=== PATIENT | male | born 1935 | race Caucasian/White ===

== ENCOUNTER 2023-10-13 13:29 | Outpatient (CLI) | payer MEDICARE ==
[2023-10-13] MEDS ORDERED: Magnevist 469MG/ML 20 ML VIAL ONE ×2 (13:59)
== END 2023-10-13 13:30 | disposition home or self-care (01) ==
LOC: MRI 13:29
PROVIDERS: ATTEND Radiology Radiation Oncology
DX: C71.3 Malignant neoplasm of parietal lobe (principal); M47.816 Spondylosis without myelopathy or radiculopathy, lumbar region; M47.817 Spondylosis without myelopathy or radiculopathy, lumbosacral region; M43.17 Spondylolisthesis, lumbosacral region; M48.061 Spinal stenosis, lumbar region without neurogenic claudication; M48.07 Spinal stenosis, lumbosacral region; M46.1 Sacroiliitis, not elsewhere classified
CPT/HCPCS: 72158; 72197; A9579

== ENCOUNTER 2023-11-29 18:35 | Emergency (ER) | payer MEDICARE ==
[2023-11-29 20:21] LABS: #Eosinphils 0.1 thou/uL (0.0-0.7); #Monocytes 0.7 thou/uL (0.11-0.59); #Neutrophils 4.4 thou/uL (1.40-6.50); %Basophils 0.3 % (0.0-1.0); %Eosinophils 0.7 % (0.0-10.0); %Lymphocytes 22.2 % (21.0-51.0); %Monocytes 10.4 % (0.0-10.0); %Neutrophils 64.8 % (42.0-75.0); Hematocrit 46.1 % (42.0-52.0); Hemoglobin 16.1 g/dL (14.0-18.0); Mean Corpuscular HGB CONC 34.9 g/dL (32.0-36.0); Mean Corpuscular Hemoglobin 35.6 pg (27.0-31.0); RBC Distribution Width 14.5 % (11.5-14.5); Red Blood Cell (RBC) Count 4.52 mill/uL (4.70-6.10); White Blood Cell (WBC) Count 6.9 10x3/uL (4.8-10.8)
[2023-11-29 20:23] LABS: Platelet Count 84 10x3/uL (130-400)
[2023-11-29 20:45] LABS: ALT (SGPT) 26 U/L (8-55); AST (SGOT) 40 U/L (5-34); Albumin 3.7 g/dL (3.4-4.8); Alkaline Phosphatase 101 U/L (40-110); Anion Gap 16 mmol/L (10-20); BUN (Urea Nitrogen) 24 mg/dL (8.4-25.7); Bilirubin, Total 1.1 mg/dL (0.2-1.2); Calc. Creatinine Clearance 0 mL/min (70-130); Calcium 8.5 mg/dL (7.8-10.44); Carbon Dioxide 22 mmol/L (23-31); Chloride 102 mmol/L (98-107); Estimated GFR 78; Globulin 3.7 g/dL (2.4-3.5); Glucose 113 mg/dL (83-110); Potassium 4.2 mmol/L (3.5-5.1); Protein, Total 7.4 g/dL (5.8-8.1); Sodium 136 mmol/L (136-145)
[2023-11-29 21:14] LABS: SARS-CoV-2 NAA Rapid Test Not Detected (NotDetected)
[2023-11-29 21:39] LABS: Bacteria/HPF None Seen HPF (None Seen); Bilirubin Negative (Negative); Blood, Urine Negative (Negative); CAUTI Indications for Culture Alt mental st,lethar; Clarity Clear (Clear); Glucose, Urine (Dipstick) Normal (Negative); Ketone, Urine Negative (Negative); Leukocyte Negative Leu/uL (Negative); Nitrite Negative (Negative); Protein, Urine (Dipstick) 20 mg/dL (Neg-Trace); RBC/HPF 0-3 HPF (0-3); Specific Gravity, Urine 1.025 (1.002-1.036); Squamous Epithelial None Seen HPF (0-3); Urobilinogen Normal mg/dL (Less than 2); WBC/HPF 0-3 HPF (0-3); pH, Urine 5.5 (5.0-9.0)
[2023-11-29 21:42] LABS: Urine Culture Reflex No No
== END 2023-11-29 22:31 | disposition home or self-care (01) ==
LOC: ERS 18:35
DX: R53.1 Weakness (principal); R53.81 Other malaise
CPT/HCPCS: 0240U; 71045; 80053; 81001; 83605; 85025; 93005

== ENCOUNTER 2023-12-05 15:34 | Inpatient (IN) | payer MEDICARE ==
[2023-12-05 17:18] LABS: #Eosinphils 0.1 thou/uL (0.0-0.7); #Monocytes 0.4 thou/uL (0.11-0.59); #Neutrophils 4.2 thou/uL (1.40-6.50); %Basophils 0.2 % (0.0-1.0); %Eosinophils 1.3 % (0.0-10.0); %Lymphocytes 13.3 % (21.0-51.0); %Monocytes 6.6 % (0.0-10.0); %Neutrophils 76.8 % (42.0-75.0); Hematocrit 37.4 % (42.0-52.0); Hemoglobin 13.1 g/dL (14.0-18.0); Mean Corpuscular Hemoglobin 35.8 pg (27.0-31.0); Mean Corpuscular Volume 102.2 fl (78.0-98.0); Mean Platelet Volume 9.8 fL (7.4-10.4); RBC Distribution Width 14.3 % (11.5-14.5); Red Blood Cell (RBC) Count 3.66 mill/uL (4.70-6.10); White Blood Cell (WBC) Count 5.5 10x3/uL (4.8-10.8)
[2023-12-05 17:22] LABS: Platelet Count 94 10x3/uL (130-400)
[2023-12-05] MEDS ORDERED: Azithromycin 500 MG VIAL ONE ×2 (17:31→20:47)
[2023-12-05 17:40] LABS: ALT (SGPT) 17 U/L (8-55); AST (SGOT) 17 U/L (5-34); Albumin 3.1 g/dL (3.4-4.8); Alkaline Phosphatase 82 U/L (40-110); Anion Gap 13 mmol/L (10-20); BUN (Urea Nitrogen) 20 mg/dL (8.4-25.7); Bilirubin, Total 1.2 mg/dL (0.2-1.2); Calc. Creatinine Clearance 0 mL/min (70-130); Calcium 8.2 mg/dL (7.8-10.44); Carbon Dioxide 23 mmol/L (23-31); Chloride 102 mmol/L (98-107); Estimated GFR 87; Glucose 153 mg/dL (83-110); Lipase 29 U/L (8-78); Magnesium 1.7 mg/dL (1.6-2.6); Potassium 3.7 mmol/L (3.5-5.1); Protein, Total 6.1 g/dL (5.8-8.1); Sodium 134 mmol/L (136-145)
[2023-12-05 17:42] LABS: Troponin I 0.042 ng/mL (< 0.028)
[2023-12-05 19:00] LABS: Bacteria/HPF None Seen HPF (None Seen); Bilirubin Negative (Negative); Blood, Urine Negative (Negative); CAUTI Indications for Culture Immunosuppressed; Clarity Clear (Clear); Glucose, Urine (Dipstick) Normal (Negative); Ketone, Urine Negative (Negative); Leukocyte Negative Leu/uL (Negative); Nitrite Negative (Negative); Protein, Urine (Dipstick) Negative (Neg-Trace); RBC/HPF 0-3 HPF (0-3); Specific Gravity, Urine 1.012 (1.002-1.036); Squamous Epithelial None Seen HPF (0-3); Urobilinogen Normal mg/dL (Less than 2); WBC/HPF 0-3 HPF (0-3)
[2023-12-05 19:06] LABS: Urine Culture Reflex Yes Yes
[2023-12-05] MEDS ORDERED: Dextrose 5% in Water 1,000 ML IV PRN (19:27)
[2023-12-05] MEDS ORDERED: Ondansetron PF 4 MG/2 ML Vial IVP PRN (19:27)
[2023-12-05] MEDS ORDERED: Senokot S 8.6-50 MG TAB PO PRN (19:27)
[2023-12-05] MEDS ORDERED: Ondansetron ODT 4 MG TAB PO PRN (19:27)
[2023-12-05] MEDS ORDERED: Acetaminophen 325 MG TAB PO PRN (19:27)
[2023-12-05] MEDS ORDERED: Dextrose 50% Abboject 50 ML SYRINGE SLOW IVP PRN (19:27)
[2023-12-05] MEDS ORDERED: Acetaminophen 650 MG Suppository PR PRN (19:27)
[2023-12-05] MEDS ORDERED: Glucagon 1 MG/ML KIT IM PRN (19:27)
[2023-12-05] MEDS ORDERED: Electrolyte Replacement Protocol 1 EACH FS SCH (19:30)
[2023-12-05] MEDS ORDERED: Sodium Chloride 0.9% 1,000 ML IV SCH (19:30)
[2023-12-05 19:31] LABS: SARS-CoV-2 NAA Rapid Test Not Detected (NotDetected)
[2023-12-05] MEDS ORDERED: Ipratropium/Albuterol 3 ML NEB NEB PRN (19:34)
[2023-12-05] MEDS ORDERED: Morphine 2 MG/ML VIAL SLOW IVP PRN (19:34)
[2023-12-05 20:54] LABS: Troponin I 0.041 ng/mL (< 0.028)
[2023-12-05 22:07] VITALS: BMI 23.1
[2023-12-05] MEDS: cefTRIAXone\\ROCEPHIN 1 GM in Sodium Chloride 0.9% 100 ML IVPB SCH (22:42)
[2023-12-05] MEDS: Famotidine 20 MG TAB PO SCH (22:42)
[2023-12-06 00:33] LABS: Legionella Urinary Ag Negative (Negative); Strep pneumo Urine Ag NEGATIVE (NEGATIVE)
[2023-12-06] MEDS ORDERED: Magnesium 2 GM/50 ML(in water) 2 GM in Premix 1 BAG IVPB SCH (00:45)
[2023-12-06 04:42] LABS: #Eosinphils 0.2 thou/uL (0.0-0.7); #Monocytes 0.4 thou/uL (0.11-0.59); #Neutrophils 3.4 thou/uL (1.40-6.50); %Basophils 0.2 % (0.0-1.0); %Eosinophils 3.5 % (0.0-10.0); %Lymphocytes 21.6 % (21.0-51.0); %Monocytes 7.3 % (0.0-10.0); Hematocrit 37.6 % (42.0-52.0); Hemoglobin 12.7 g/dL (14.0-18.0); Mean Corpuscular HGB CONC 33.8 g/dL (32.0-36.0); Mean Corpuscular Hemoglobin 35.4 pg (27.0-31.0); Mean Corpuscular Volume 104.7 fl (78.0-98.0); Platelet Count 93 10x3/uL (130-400); RBC Distribution Width 14.5 % (11.5-14.5); Red Blood Cell (RBC) Count 3.59 mill/uL (4.70-6.10); White Blood Cell (WBC) Count 5.1 10x3/uL (4.8-10.8)
[2023-12-06 05:09] LABS: ALT (SGPT) 16 U/L (8-55); AST (SGOT) 16 U/L (5-34); Albumin 2.8 g/dL (3.4-4.8); Alkaline Phosphatase 74 U/L (40-110); Anion Gap 14 mmol/L (10-20); BUN (Urea Nitrogen) 17 mg/dL (8.4-25.7); Bilirubin, Total 0.7 mg/dL (0.2-1.2); Calc. Creatinine Clearance 70 mL/min (70-130); Calcium 7.7 mg/dL (7.8-10.44); Carbon Dioxide 20 mmol/L (23-31); Chloride 108 mmol/L (98-107); Estimated GFR 88; Globulin 2.8 g/dL (2.4-3.5); Glucose 144 mg/dL (83-110); Magnesium 2.7 mg/dL (1.6-2.6); Potassium 3.7 mmol/L (3.5-5.1); Protein, Total 5.6 g/dL (5.8-8.1); Sodium 138 mmol/L (136-145)
[2023-12-06 05:14] LABS: Troponin I 0.022 ng/mL (< 0.028)
[2023-12-06] MEDS ORDERED: Electrolyte Replacement Protocol FS PRN (07:00)
[2023-12-06] MEDS: Famotidine 20 MG TAB PO SCH ×2 (09:01→20:36)
[2023-12-06] MEDS: Clopidogrel Bisulfate 75 MG TAB PO SCH (15:56)
[2023-12-06] MEDS: Tamsulosin HCl 0.4 MG CAP PO SCH (15:57)
[2023-12-06] MEDS: levETIRAcetam 500 MG TAB PO SCH ×2 (15:57→20:37)
[2023-12-06] MEDS: Aspirin 81 mg Enteric Coated Tablet PO SCH (20:36)
[2023-12-06] MEDS: Empagliflozin 10 MG TAB PO SCH ×2 (20:36)
[2023-12-06] MEDS: Cholecalciferol 1,000 UNITS (25 MCG) TAB PO SCH (20:36)
[2023-12-06] MEDS: Atorvastatin Calcium 20 MG TAB PO SCH (20:36)
[2023-12-06] MEDS: CO Q-10 CAPSULE 100 MG PO SCH (20:36)
[2023-12-06] MEDS: cefTRIAXone\\ROCEPHIN 1 GM in Sodium Chloride 0.9% 100 ML IVPB SCH (20:37)
[2023-12-06] MEDS: Azithromycin 500 MG in Sodium Chloride 0.9% 250 ML 250 ML IVPB SCH (21:20)
[2023-12-07] MEDS: HumaLOG 300 UNITS/3 ML VIAL SC PRN ×4 (06:11→21:06)
[2023-12-07 07:16] LABS: Calc. Creatinine Clearance 68 mL/min (70-130); Calcium 7.4 mg/dL (7.8-10.44); Estimated GFR 87
[2023-12-07 07:17] LABS: Phosphorus 2.5 mg/dL (2.3-4.7)
[2023-12-07] MEDS: levETIRAcetam 500 MG TAB PO SCH ×2 (07:29→21:03)
[2023-12-07] MEDS: Tamsulosin HCl 0.4 MG CAP PO SCH (07:29)
[2023-12-07] MEDS: Famotidine 20 MG TAB PO SCH ×2 (07:29→21:02)
[2023-12-07] MEDS: Clopidogrel Bisulfate 75 MG TAB PO SCH (07:30)
[2023-12-07] MEDS: Icosapent Ethyl 1 GM CAPSULE PO SCH (07:32)
[2023-12-07] MEDS: Calcium Polycarbophil 625 MG TAB PO SCH (07:32)
[2023-12-07] MEDS: Dexamethasone 1 MG TAB PO SCH (07:32)
[2023-12-07] MEDS ORDERED: Magnesium 2 GM/50 ML(in water) 2 GM in Premix 1 BAG IVPB SCH (08:00)
[2023-12-07] MEDS: cefTRIAXone\\ROCEPHIN 1 GM in Sodium Chloride 0.9% 100 ML IVPB SCH (21:02)
[2023-12-07] MEDS: Cholecalciferol 1,000 UNITS (25 MCG) TAB PO SCH (21:02)
[2023-12-07] MEDS: Aspirin 81 mg Enteric Coated Tablet PO SCH (21:02)
[2023-12-07] MEDS: CO Q-10 CAPSULE 100 MG PO SCH (21:03)
[2023-12-07] MEDS: Empagliflozin 10 MG TAB PO SCH (21:03)
[2023-12-07] MEDS: Atorvastatin Calcium 20 MG TAB PO SCH (21:03)
[2023-12-07] MEDS: Azithromycin 500 MG in Sodium Chloride 0.9% 250 ML 250 ML IVPB SCH (21:45)
[2023-12-08] MEDS: Icosapent Ethyl 1 GM CAPSULE PO SCH (09:51)
[2023-12-08] MEDS: Famotidine 20 MG TAB PO SCH ×2 (09:51→21:04)
[2023-12-08] MEDS: Tamsulosin HCl 0.4 MG CAP PO SCH (09:51)
[2023-12-08] MEDS: levETIRAcetam 500 MG TAB PO SCH ×2 (09:51→21:03)
[2023-12-08] MEDS: Calcium Polycarbophil 625 MG TAB PO SCH (09:51)
[2023-12-08] MEDS: Clopidogrel Bisulfate 75 MG TAB PO SCH ×2 (09:51→09:57)
[2023-12-08] MEDS: Dexamethasone 1 MG TAB PO SCH (09:51)
[2023-12-08] MEDS ORDERED: LevoFLOXacin 750 MG TAB PO SCH (10:00)
[2023-12-08] MEDS: HumaLOG 300 UNITS/3 ML VIAL SC PRN ×2 (17:37→21:05)
[2023-12-08] MEDS: Empagliflozin 10 MG TAB PO SCH (20:59)
[2023-12-08] MEDS: CO Q-10 CAPSULE 100 MG PO SCH (21:03)
[2023-12-08] MEDS: Aspirin 81 mg Enteric Coated Tablet PO SCH (21:04)
[2023-12-08] MEDS: Atorvastatin Calcium 20 MG TAB PO SCH (21:04)
[2023-12-08] MEDS: Cholecalciferol 1,000 UNITS (25 MCG) TAB PO SCH (21:04)
[2023-12-09] MEDS: LevoFLOXacin 750 MG TAB PO SCH (05:51)
[2023-12-09] MEDS: Calcium Polycarbophil 625 MG TAB PO SCH (08:15)
[2023-12-09] MEDS: Clopidogrel Bisulfate 75 MG TAB PO SCH (08:16)
[2023-12-09] MEDS: Icosapent Ethyl 1 GM CAPSULE PO SCH (08:16)
[2023-12-09] MEDS: levETIRAcetam 500 MG TAB PO SCH ×2 (08:16→21:02)
[2023-12-09] MEDS: Tamsulosin HCl 0.4 MG CAP PO SCH (08:16)
[2023-12-09] MEDS: Famotidine 20 MG TAB PO SCH ×2 (08:16→21:02)
[2023-12-09] MEDS: Dexamethasone 1 MG TAB PO SCH (08:16)
[2023-12-09] MEDS: HumaLOG 300 UNITS/3 ML VIAL SC PRN ×3 (13:00→21:53)
[2023-12-09] MEDS: Empagliflozin 10 MG TAB PO SCH (21:01)
[2023-12-09] MEDS: CO Q-10 CAPSULE 100 MG PO SCH (21:02)
[2023-12-09] MEDS: Cholecalciferol 1,000 UNITS (25 MCG) TAB PO SCH (21:02)
[2023-12-09] MEDS: Aspirin 81 mg Enteric Coated Tablet PO SCH (21:02)
[2023-12-09] MEDS: Atorvastatin Calcium 20 MG TAB PO SCH (21:02)
[2023-12-10] MEDS: LevoFLOXacin 750 MG TAB PO SCH (05:32)
[2023-12-10] MEDS: Clopidogrel Bisulfate 75 MG TAB PO SCH (08:31)
[2023-12-10] MEDS: Calcium Polycarbophil 625 MG TAB PO SCH (08:31)
[2023-12-10] MEDS: levETIRAcetam 500 MG TAB PO SCH ×2 (08:32→21:20)
[2023-12-10] MEDS: Icosapent Ethyl 1 GM CAPSULE PO SCH (08:32)
[2023-12-10] MEDS: Famotidine 20 MG TAB PO SCH ×2 (08:33→21:19)
[2023-12-10] MEDS: Dexamethasone 1 MG TAB PO SCH (08:33)
[2023-12-10] MEDS: Tamsulosin HCl 0.4 MG CAP PO SCH (08:33)
[2023-12-10] MEDS: HumaLOG 300 UNITS/3 ML VIAL SC PRN ×3 (12:39→21:21)
[2023-12-10] MEDS: Atorvastatin Calcium 20 MG TAB PO SCH (21:20)
[2023-12-10] MEDS: CO Q-10 CAPSULE 100 MG PO SCH (21:20)
[2023-12-10] MEDS: Aspirin 81 mg Enteric Coated Tablet PO SCH (21:20)
[2023-12-10] MEDS: Cholecalciferol 1,000 UNITS (25 MCG) TAB PO SCH (21:20)
[2023-12-10] MEDS: Empagliflozin 10 MG TAB PO SCH (21:20)
[2023-12-11] MEDS: LevoFLOXacin 750 MG TAB PO SCH (05:21)
[2023-12-11] MEDS: Calcium Polycarbophil 625 MG TAB PO SCH (10:15)
[2023-12-11] MEDS: Icosapent Ethyl 1 GM CAPSULE PO SCH (10:15)
[2023-12-11] MEDS: Clopidogrel Bisulfate 75 MG TAB PO SCH (10:16)
[2023-12-11] MEDS: Dexamethasone 1 MG TAB PO SCH (10:16)
[2023-12-11] MEDS: Famotidine 20 MG TAB PO SCH ×2 (10:16→20:53)
[2023-12-11] MEDS: levETIRAcetam 500 MG TAB PO SCH ×2 (10:16→20:53)
[2023-12-11] MEDS: Tamsulosin HCl 0.4 MG CAP PO SCH (10:16)
[2023-12-11] MEDS: HumaLOG 300 UNITS/3 ML VIAL SC PRN (18:54)
[2023-12-11] MEDS: Atorvastatin Calcium 20 MG TAB PO SCH (20:52)
[2023-12-11] MEDS: CO Q-10 CAPSULE 100 MG PO SCH (20:52)
[2023-12-11] MEDS: Cholecalciferol 1,000 UNITS (25 MCG) TAB PO SCH (20:52)
[2023-12-11] MEDS: Empagliflozin 10 MG TAB PO SCH (20:53)
[2023-12-11] MEDS: Aspirin 81 mg Enteric Coated Tablet PO SCH (20:53)
[2023-12-12] MEDS: LevoFLOXacin 750 MG TAB PO SCH (06:06)
[2023-12-12] MEDS: Icosapent Ethyl 1 GM CAPSULE PO SCH (09:49)
[2023-12-12] MEDS: Famotidine 20 MG TAB PO SCH ×2 (09:49→20:40)
[2023-12-12] MEDS: Calcium Polycarbophil 625 MG TAB PO SCH (09:49)
[2023-12-12] MEDS: Tamsulosin HCl 0.4 MG CAP PO SCH (09:50)
[2023-12-12] MEDS: Dexamethasone 1 MG TAB PO SCH (09:50)
[2023-12-12] MEDS: levETIRAcetam 500 MG TAB PO SCH ×2 (09:50→20:39)
[2023-12-12] MEDS: Clopidogrel Bisulfate 75 MG TAB PO SCH (11:39)
[2023-12-12] MEDS: HumaLOG 300 UNITS/3 ML VIAL SC PRN ×2 (18:46→20:40)
[2023-12-12] MEDS: Aspirin 81 mg Enteric Coated Tablet PO SCH (20:39)
[2023-12-12] MEDS: CO Q-10 CAPSULE 100 MG PO SCH (20:39)
[2023-12-12] MEDS: Atorvastatin Calcium 20 MG TAB PO SCH (20:39)
[2023-12-12] MEDS: Empagliflozin 10 MG TAB PO SCH (20:40)
[2023-12-12] MEDS: Cholecalciferol 1,000 UNITS (25 MCG) TAB PO SCH (20:40)
[2023-12-13 04:33] LABS: #Eosinphils 0.2 thou/uL (0.0-0.7); #Monocytes 0.5 thou/uL (0.11-0.59); #Neutrophils 3.3 thou/uL (1.40-6.50); %Basophils 0.4 % (0.0-1.0); %Eosinophils 2.9 % (0.0-10.0); %Lymphocytes 21.6 % (21.0-51.0); %Monocytes 10.2 % (0.0-10.0); Hemoglobin 13.8 g/dL (14.0-18.0); Mean Corpuscular HGB CONC 35.4 g/dL (32.0-36.0); Mean Corpuscular Hemoglobin 35.4 pg (27.0-31.0); Mean Platelet Volume 10.2 fL (7.4-10.4); Platelet Count 138 10x3/uL (130-400); White Blood Cell (WBC) Count 5.2 10x3/uL (4.8-10.8)
[2023-12-13 04:58] LABS: Anion Gap 14 mmol/L (10-20); BUN (Urea Nitrogen) 24 mg/dL (8.4-25.7); Calc. Creatinine Clearance 59 mL/min (70-130); Calcium 8.3 mg/dL (7.8-10.44); Carbon Dioxide 21 mmol/L (23-31); Chloride 105 mmol/L (98-107); Estimated GFR 84; Glucose 150 mg/dL (83-110); Potassium 3.9 mmol/L (3.5-5.1); Sodium 136 mmol/L (136-145)
[2023-12-13] MEDS: LevoFLOXacin 750 MG TAB PO SCH (05:48)
[2023-12-13] MEDS: Dexamethasone 1 MG TAB PO SCH (09:20)
[2023-12-13] MEDS: levETIRAcetam 500 MG TAB PO SCH ×2 (09:21→19:45)
[2023-12-13] MEDS: Icosapent Ethyl 1 GM CAPSULE PO SCH (09:21)
[2023-12-13] MEDS: Tamsulosin HCl 0.4 MG CAP PO SCH (09:21)
[2023-12-13] MEDS: Calcium Polycarbophil 625 MG TAB PO SCH (09:21)
[2023-12-13] MEDS: Famotidine 20 MG TAB PO SCH ×2 (09:21→19:44)
[2023-12-13] MEDS: Clopidogrel Bisulfate 75 MG TAB PO SCH (12:21)
[2023-12-13] MEDS: HumaLOG 300 UNITS/3 ML VIAL SC PRN (18:06)
[2023-12-13] MEDS: CO Q-10 CAPSULE 100 MG PO SCH (19:44)
[2023-12-13] MEDS: Aspirin 81 mg Enteric Coated Tablet PO SCH (19:44)
[2023-12-13] MEDS: Atorvastatin Calcium 20 MG TAB PO SCH (19:44)
[2023-12-13] MEDS: Cholecalciferol 1,000 UNITS (25 MCG) TAB PO SCH (19:44)
[2023-12-13] MEDS: Empagliflozin 10 MG TAB PO SCH (19:51)
[2023-12-14 05:38] LABS: #Eosinphils 0.1 thou/uL (0.0-0.7); #Monocytes 0.6 thou/uL (0.11-0.59); #Neutrophils 3.1 thou/uL (1.40-6.50); %Basophils 0.6 % (0.0-1.0); %Eosinophils 2.1 % (0.0-10.0); %Lymphocytes 24.2 % (21.0-51.0); %Monocytes 12.2 % (0.0-10.0); %Neutrophils 58.8 % (42.0-75.0); Hematocrit 39.4 % (42.0-52.0); Hemoglobin 13.7 g/dL (14.0-18.0); Mean Corpuscular HGB CONC 34.8 g/dL (32.0-36.0); Mean Corpuscular Hemoglobin 35.1 pg (27.0-31.0); Mean Platelet Volume 10.2 fL (7.4-10.4); Platelet Count 147 10x3/uL (130-400); RBC Distribution Width 14.3 % (11.5-14.5); White Blood Cell (WBC) Count 5.2 10x3/uL (4.8-10.8)
[2023-12-14] MEDS: LevoFLOXacin 750 MG TAB PO SCH (05:43)
[2023-12-14 05:51] LABS: Anion Gap 12 mmol/L (10-20); BUN (Urea Nitrogen) 26 mg/dL (8.4-25.7); Calc. Creatinine Clearance 60 mL/min (70-130); Calcium 8.3 mg/dL (7.8-10.44); Carbon Dioxide 22 mmol/L (23-31); Chloride 106 mmol/L (98-107); Estimated GFR 84; Glucose 133 mg/dL (83-110); Potassium 3.8 mmol/L (3.5-5.1); Sodium 136 mmol/L (136-145)
[2023-12-14] MEDS: Clopidogrel Bisulfate 75 MG TAB PO SCH (09:07)
[2023-12-14] MEDS: Icosapent Ethyl 1 GM CAPSULE PO SCH (09:09)
[2023-12-14] MEDS: Famotidine 20 MG TAB PO SCH (09:09)
[2023-12-14] MEDS: Dexamethasone 1 MG TAB PO SCH (09:09)
[2023-12-14] MEDS: Tamsulosin HCl 0.4 MG CAP PO SCH (09:09)
[2023-12-14] MEDS: levETIRAcetam 500 MG TAB PO SCH (09:09)
[2023-12-14] MEDS: Calcium Polycarbophil 625 MG TAB PO SCH (09:09)
[2023-12-14] MEDS: HumaLOG 300 UNITS/3 ML VIAL SC PRN (13:24)
[2023-12-14 17:24] VITALS: BP 124/82; TEMP 97.3
== END 2023-12-14 19:20 | disposition home or self-care (01) | DRG 193 ==
LOC: ERS 15:34 → T4-B 18:29 → OBSVTOIN 12-06 16:34
PROVIDERS: ADMIT Family Medicine; ATTEND Internal Medicine
DX: J18.9 Pneumonia, unspecified organism (principal); I21.A1 Myocardial infarction type 2; C71.9 Malignant neoplasm of brain, unspecified; E11.9 Type 2 diabetes mellitus without complications; I10 Essential (primary) hypertension; I25.10 Atherosclerotic heart disease of native coronary artery without angina pectoris; E86.0 Dehydration; I48.91 Unspecified atrial fibrillation; R53.81 Other malaise; D69.6 Thrombocytopenia, unspecified; Z98.890 Other specified postprocedural states; Z95.5 Presence of coronary angioplasty implant and graft; Z79.899 Other long term (current) drug therapy; Z95.0 Presence of cardiac pacemaker; Z88.0 Allergy status to penicillin; Z88.8 Allergy status to other drugs, medicaments and biological substances; Z11.52 Encounter for screening for COVID-19
CPT/HCPCS: 36415; 36416; 70450; 71045; 72125; 80048; 80053; 81001; 82310; 82565; 83690; 83735; 84100; 84484; 85025; 87040; 87086; 87449; 87899; 93005; 93010; 96360; J0456; J0696; J1815; J3475; J3490; J7050; J8540

== ENCOUNTER 2024-05-15 10:35 | Outpatient (CLI) | payer MEDICARE ==
[~2024-05-15 10:35] MED LIST: Magnevist 469MG/ML 20 ML VIAL ONE
== END 2024-05-15 10:36 | disposition home or self-care (01) ==
LOC: MRI 10:35
PROVIDERS: ATTEND Internal Medicine Hematology & Oncology
DX: C71.1 Malignant neoplasm of frontal lobe (principal); Z95.0 Presence of cardiac pacemaker
CPT/HCPCS: 70553; 76377; A9579